=== PATIENT | male | born 1955 | race Caucasian/White ===

== ENCOUNTER 2023-08-02 10:09 | Day surgery (SDC) | payer MEDICARE, BC ==
[~2023-08-02 10:09] MED LIST: LIDOCAINE 1% (10MG/ML) FOR IV START INTRADERMA PRN
[2023-08-02] MEDS: LACTATED RINGERS 1,000 ML IV SCH ×2 (10:33→10:54)
[2023-08-02 11:03] VITALS: TEMP 97.8
[2023-08-02] MEDS ORDERED: LIDOCAINE 2% (PF) 20 MG/ML 5 ML VIAL ONE (11:47)
[2023-08-02] MEDS ORDERED: PROPOFOL 10 MG/ML 20 ML VIAL IV ONE (11:47)
--- NOTE | 2023-08-02 12:08 | P.PCN ---
Date of Procedure: 08/02/23 Procedure(s) Performed: Brief history: Patient is a pleasant 68-year-old white female scheduled for an elective upper endoscopy as well as colonoscopy as a part of evaluation of GERD/intermittent dysphagia to solids and screening for colon cancer Procedure performed: Esophagogastroduodenoscopy with biopsy and dilation Colonoscopy Preoperative diagnosis: GERD/intermittent dysphagia to solids and screening for colon cancer Anesthesia: MAC Procedure: After informed consent was obtained from the patient was brought into the endoscopy unit and IV sedation was administered by anesthesia under continuous monitoring. Initially upper endoscopy was done. The Olympus GF 160 video endoscope was inserted inserted into the mouth and esophagus intubated without any difficulty and was gradually advanced into the stomach and duodenum and carefully examined. The bulb and second part of the duodenum appeared normal. The scope was then withdrawn into the stomach adequately insufflated with air and upon careful examination the antrum and body, cardia and fundus appeared normal. The scope was then withdrawn into the esophagus. The GE junction was located at 40 cm to the incisors. Small hiatal hernia noted. There was a distal esophageal surgery identified and this was dilated using 15 mm TTS balloon for 30 seconds. 4 dilation there was a small mucosal the discussed and hence further dilation was not performed. The GE junction appeared regular with no erythema erosions or ulcthere were somewhat thickened esophageal folds in the mid and distal esophagus Rest and biopsies were done from this area to rule out years of age esophagitis. of the esophagus appeared normal. Patient tolerated the procedure well. At this time the patient continued to remain sedation. Initial digital rectal examination was normal. Olympus CF 160 video colonoscope was then inserted into the rectum and gradually advanced to the cecum without any difficulty. Careful examination was performed as the scope was gradually being withdrawn. The prep was excellent. The cecum, ascending colon, transverse colon, descending colon, sigmoid colon and rectum appeared normal. Retroflexion was performed in the rectum and no lesions were noted. Patient tolerated the procedure well. Impression: 1. Upper endoscopy revealed small hiatal hernia distal esophageal stricture status post balloon dilation using 15 mm TTS balloon and thickened distal esophageal folds status post biopsies 2. Colonoscopy was within normal limits with no evidence of colorectal neoplasia except for scattered sigmoid diverticulosis Recommendations: Findings of this examination were discussed with the patient as well as her family. She was advised to be on a clear liquid diet for 2 hours. Start on omeprazole 20 mg daily and follow antrum reflux measures. Recommend repeat screening colonoscopy in 10 years
[2023-08-02 13:10] VITALS: BP 140/68; PULSE 59; RESP 18
== END 2023-08-02 13:19 | disposition home or self-care (01) ==
LOC: ORWHC2ENDO 10:09
PROVIDERS: ATTEND Internal Medicine Gastroenterology
DX: Z12.11 Encounter for screening for malignant neoplasm of colon (principal); K21.9 Gastro-esophageal reflux disease without esophagitis; K44.9 Diaphragmatic hernia without obstruction or gangrene; K57.30 Diverticulosis of large intestine without perforation or abscess without bleeding; E78.5 Hyperlipidemia, unspecified; Z85.118 Personal history of other malignant neoplasm of bronchus and lung; Z79.899 Other long term (current) drug therapy; Z85.831 Personal history of malignant neoplasm of soft tissue
CPT/HCPCS: 43239; G0105; 43249; 45378; 88305